=== PATIENT | female | born 1975 | race Hispanic/Latino ===

== ENCOUNTER 2023-02-01 14:01 | Emergency (ER) | payer OTHER ==
[2023-02-01 14:41] LABS: Absolute Lymphocytes (CBC) 2.6 K/uL (0.7-4.9); Hematocrit 41.3 % (36.0-45.0); Lymphocytes % 28.2 % (15.3-44.8); MCV 85.3 fL (80-100); MPV 8.1 fL (7.6-11.3); RBC Red Blood Cell Count 4.84 M/uL (3.86-4.86)
[2023-02-01] MEDS ORDERED: TETANUS & DIPHTHERIA TOX,ADULT 0.5 ML VIAL ONE (14:49)
[2023-02-01 14:50] LABS: Potassium 3.7 mEq/L (3.5-5.1)
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
--- NOTE | 2023-02-01 15:46 | RAD REPORT ---
EXAM DESCRIPTION: RAD - Femur Left - 02/01/2023 3:27 pm CLINICAL HISTORY: PAIN COMPARISON: <Comparisons> FINDINGS: Moderate osteoarthritis affects the left hip. No fracture, dislocation or AVN.
[2023-02-01] MEDS ORDERED: NA CHLORIDE 0.9% 250 ML ONE (16:01)
[2023-02-01] MEDS ORDERED: ONDANSETRON 4 MG/2 ML VIAL ONE (16:37)
[2023-02-01] MEDS ORDERED: KETOROLAC 30 MG/ML INJ ONE (16:37)
[2023-02-01] MEDS ORDERED: LIDOCAINE 1% MPF 5 ML VIAL ONE (17:04)
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
[2023-02-01 18:18] VITALS: TEMP 98.6
[2023-02-01 18:24] VITALS: BP 143/94; O2SAT 97
== END 2023-02-01 17:44 | disposition home or self-care (01) ==
LOC: ER 14:01
DX: S81.811A Laceration without foreign body, right lower leg, initial encounter (principal); V49.59XA Passenger injured in collision with other motor vehicles in traffic accident, initial encounter; Z23 Encounter for immunization
CPT/HCPCS: 85025; 80048; 36415; 86900; 86850; 86901; 70450; 72125; 71260; 74177; 73502; 73030; 73552; 73590; 90714; Q9967; J2001; J2405; J7050; 82565

== ENCOUNTER 2025-07-21 07:41 | Day surgery (SDC) | payer MEDICARE ==
[2025-07-18 16:13] LABS: Absolute Lymphocytes (CBC) 1.9 K/uL (0.7-4.9); Hematocrit 39.1 % (36.0-45.0); Hemoglobin 13.3 g/dL (12.0-15.0); MCH 27.6 pg (27.0-35.0); MCHC 33.9 g/dL (32.0-36.0); MCV 81.3 fL (80-100); MPV 8.1 fL (7.6-11.3); Nucleated RBC Absolute Count 0.0 (0-0); Nucleated Red Blood Cells % 0.1 % (0-0); RBC Red Blood Cell Count 4.81 M/uL (3.86-4.86); White Blood Count 5.90 thou/uL (4.3-10.9)
[2025-07-18 16:27] LABS: Anion Gap 8.2 mEq/L (5.0-15.0); BUN Blood Urea Nitrogen 18.0 mg/dL (7-18); Glucose Level 92.0 mg/dL (74-106); Potassium 4.2 mEq/L (3.5-5.1)
--- NOTE | 2025-07-18 17:19 | RAD REPORT ---
EXAM: Chest Pa And Lat (2 Views) HISTORY: 50 years Female pre op for colonoscopy COMPARISON: No prior exams FINDINGS: LUNGS/PLEURA: The lungs are clear. No pleural effusions or pneumothorax. No pulmonary edema. CARDIAC/MEDIASTINUM: The cardiac silhouette is within normal limits. UPPER ABDOMEN: No significant abnormality. BONES: No acute abnormality. LINES/TUBES/OTHER: N/A IMPRESSION: No evidence of acute cardiopulmonary disease.
[2025-07-21] MEDS ORDERED: FENTANYL CITR 100 MCG/2 ML ONE (08:25)
[2025-07-21] MEDS ORDERED: GLYCOPYRROLATE 0.2 MG/ML SYR ONE (08:25)
[2025-07-21] MEDS ORDERED: LIDOCAINE 1% MPF 5 ML VIAL ONE (08:26)
[2025-07-21] MEDS: Ringers Lactate 1,000 ML IV ONE (08:39)
[2025-07-21 09:57] VITALS: TEMP 97
[2025-07-21 09:58] VITALS: BP 119/73; O2SAT 100
== END 2025-07-21 09:47 | disposition home or self-care (01) ==
LOC: OR 07:41
PROVIDERS: ATTEND Surgery
PROC: 0DJD8ZZ Inspection of Lower Intestinal Tract, Via Natural or Artificial Opening Endoscopic (ICD-10-PCS; principal; 2025-07-21 08:30)
DX: R10.32 Left lower quadrant pain (principal); R10.12 Left upper quadrant pain; K62.89 Other specified diseases of anus and rectum; R14.3 Flatulence; K64.4 Residual hemorrhoidal skin tags; K64.8 Other hemorrhoids
CPT/HCPCS: 36415; 71046; 80048; 85025; 93005; J2003; J2704; J3010; J7120